=== PATIENT | male | born 1975 | race Caucasian/White ===

== ENCOUNTER 2021-08-21 07:59 | Outpatient (REF) | payer OTHER, SELFPAY ==
[2021-08-21 08:45] LABS: Hematocrit 41.8 % (42.0-52.0); Hemoglobin 14.6 g/dl (14.0-18.0); Mean Corpuscular HGB Conc 34.9 g/dl (31.0-36.0); Mean Corpuscular Hemoglobin 30.8 pg (27.0-33.0); Mean Corpuscular Volume 88.2 fL (80.0-98.0); Mean Platelet Volume 9.3 fL (9.4-12.4); Platelet Count 255 X10*3/uL (160-400); Red Blood Count 4.74 X10*6/uL (4.60-5.80); Red Cell Distribution Width 12.5 % (11.0-16.0); White Blood Count 6.3 X10*3/uL (4.8-10.8)
[2021-08-21 08:50] LABS: Estimated Average Glucose 91 mg/dL; Hemoglobin A1c % 4.8 %
[2021-08-21 09:15] LABS: Alanine Aminotransferase 75 U/L (0-40); Albumin Level 4.2 g/dL (3.5-5.0); Alkaline Phosphatase 60 U/L (39-117); Anion Gap 10 (12-20); Aspartate Amino Transferase 35 U/L (5-37); Bilirubin Total 0.6 mg/dL (0.0-1.0); Blood Urea Nitrogen 15 mg/dL (9-16); Calcium 9.6 mg/dL (8.4-10.2); Carbon Dioxide 29 mmol/L (22-29); Chloride 104 mmol/L (96-108); Cholesterol 213 mg/dL; Estimated Glomerular Filt Rate 57; Glucose Fasting 106 mg/dL (60-99); HDL Cholesterol 47 mg/dL; LDL Cholesterol Calculated 136 mg/dl; Sodium 138 mmol/L (135-145); Total Protein 7.5 g/dL (6.5-8.0); Triglycerides 152 mg/dL
[2021-08-21 09:37] LABS: TSH reflex Free T4 3.18 uIU/mL (0.32-4.0)
== END 2021-08-21 08:00 | disposition home or self-care (01) ==
LOC: HO.LAB 07:59
PROVIDERS: PCP Physician Assistant; Visit Provider Physician Assistant
DX: Z13.220 Encounter for screening for lipoid disorders (principal); Z13.29 Encounter for screening for other suspected endocrine disorder
CPT/HCPCS: 36415; 80053; 80061; 83036; 84443; 85027

== ENCOUNTER → 2021-11-07 14:06 | Outpatient (REF) | payer OTHER, SELFPAY | LOC: HO.SL 14:06 | PROVIDERS: PCP Physician Assistant; Visit Provider Physician Assistant | DX: G47.33 Obstructive sleep apnea (adult) (pediatric) (principal); R06.83 Snoring; R40.0 Somnolence; Z13.29 Encounter for screening for other suspected endocrine disorder | CPT/HCPCS: 95806 ==

== ENCOUNTER 2023-12-16 15:07 | Outpatient (AMB) | payer BC, SELFPAY ==
--- NOTE | 2023-12-16 15:11 | A.OFFPC_ITS ---
Vital Signs 12/16/23 15:12 Height 5 ft 11 in Weight 223 lb 6 oz BMI 31.2 BP 140/84 H Blood Pressure Location Lt brachial Position Sitting Pulse 87 Pulse Source Pulse Oximeter Pulse Oximetry (%) 98 Oxygen Delivery Method Room Air Intake Visit Reasons: PE Intake Note: Patient is here today for a physical. Lead Sustainability Specialist Required: No Accompanied by: Self / Same As Patient Allergies No Known Drug Allergies Allergy (Verified 12/16/23 15:31) Unknown Medication List - Last Reconciled 12/16/23 by Kevin Rogers PA-C ibuprofen 600 mg PO Q8H PRN pantoprazole 20 mg PO DAILY Tobacco use date assessed: 12/16/23 Dental Screening Dental Screen Date: 12/16/23 Did you have a dental visit in the last 12 months?: No Did you have a dental problem in the last 6 months where you did not have access to dental care?: No Was dental information given to patient?: Patient has dentist HPI PE HPI Details Patient is a 48-year-old male here today for routine annual physical. Patient has a past medical history significant for obesity, elevated blood pressure readings, GERD. concerns--> has been dealing with more anxiety and stress at lately. He believes his anxiety stems from personal issues at home. He is not interested in starting any medication for anxiety though is interested in mental health therapy. .. Elevated blood pressure readings: Patient's blood pressure elevated today in office. He attributes his elevated blood pressure to poor eating habits.. He report at home he has been monitoring his BP 120-128 systolic. He feels he has white coat hypertension . .. Obstructive sleep apnea: Follows [facility]. Uses CPAP on a nightly basis with .. Obesity: He does understand his BMI is over 30 and will work on being more physically active and adapting to better eating habits to reduce his weight. Vaccines: Up-to-date with COVID vaccine, need Tdap. need Pcv Laboratory Tests 08/21/21 08/21/21 08/21/21 08:19 08:19 08:19 RBC 4.74 Hgb 14.6 Creatinine 1.35 Hemoglobin A1c % 4.8 AST 35 ALT 75 H Cholesterol 213 LDL Cholesterol, C alc 136 TSH 3.18 PFSH Medical History Obesity (BMI 30-39.9) Retrognathia HTN, goal to be determined Family History Mother Heart failure, Onset Age: 70 COVID-19 Smoker Father Diabetes Paternal Grandmother Colon cancer Social History (Updated 12/16/23 @ 15:35 by Kevin Rogers PA-C) Housing: House Alcohol intake: never Patient Tobacco Use Status: Former Tobacco user Years Smoked: 7 e-Cigarette/Vaping Use: Never Used service: No Current occupational status: employed 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 1. Little interest or pleasure in doing things: not at all 2. Feeling down, depressed, or hopeless: not at all 3. Trouble falling or staying asleep, or sleeping too much: not at all 4. Feeling tired or having little energy: not at all 5. Poor appetite or overeating: not at all 6. Feeling bad about yourself - or that you are a failure or have let yourself or your family down: not at all 7. Trouble concentrating on things, such as reading the newspaper or watching television: not at all 8. Moving or speaking so slowly that other people could have noticed. Or the opposite - being so fidgety or restless that you have been moving around a lot more than usual: not at all 9. Thoughts that you would be better off or of hurting yourself in some wa y: not at all Total score: 0 Depression Screening Interpretation: Negative Depression Screening Done: Yes 14257 - PHQ-9 Billing: Yes Source: Developed by Drs. Mehrdad Pena, Mary Keita, Claudio Centeno and colleagues, with an educational camilo from [employer]. Thrive Questionnaire Date Thrive assessed: 12/16/23 I am a: Patient What is your living situation today?: I have a steady place to live Within the past 12 months, did the food you bought not last and you didn't have the money to get more?: Never true Within the past 12 months, did you worry whether your food would run out before you got money to buy more?: Never true Do you have trouble paying for medicines?: No Do you have trouble getting transportation to medical appointments?: No Do you have trouble paying your heating and electricity bill?: No Do you have trouble taking care of your child, family member or friend?: No Do you have trouble with day-to-day activities such as bathing, preparing meals, shopping, managing finances, etc.?: No Are you currently unemployed and looking for a job?: No Are you interested in more education?: No Please select the resources that you would like help with: None Currently or been in a relationship where the following occur: No concerns reported THRIVE Score: 0 AUDIT C Alcohol Use Questionnaire (AUDIT-C) 1. How often do you have a drink containing alcohol?: Never 3. How often do you have six or more drinks on one occasion?: Never Total Score: 0 MARIE-7 AMB Questionnaire MARIE-7 Date MARIE - 7 assessed: 12/16/23 Feeling nervous, anxious, or on edge: 0 = Not at all Not being able to stop or control worryin = Not at all Worrying too much about different things: 0 = Not at all Trouble relaxin = Not at all Being so restless that it is hard to sit still: 0 = Not at all Becoming easily annoyed or irritable: 0 = Not at all Feeling afraid as if something awful might happen: 0 = Not at all Total MARIE-7 score (0-4 normal; 5-9 mild; 10-14 moderate; 15-21 severe): 0 Source: Developed by Drs. Mehrdad Pena, Mary Keita, Claudio Centeno and colleagues, with an educational camilo from [employer]. MARIE-7 Assessment Billing MARIE-7 Assessment Tool: MARIE-7 Assessment 23384 Review of Systems Const Denies body aches, Denies chills, Denies excessive sweating, Denies fatigue, Denies fever(s) and Denies headache(s) Eyes Denies blurry vision ENT Denies dysphagia, Denies vertigo, Denies dizziness, Denies headache(s), Denies hearing loss and Denies tinnitus Card Denies chest pain, Denies chest pain with activity, Denies syncope, Denies irregular heart rhythm and Denies dyspnea Resp Denies chest congestion, Denies cough, Denies hemoptysis, Denies dyspnea and Denies wheezing GI Denies abdominal pain, Denies melena, Denies hematochezia, Denies coffee ground emesis, Denies dysphagia, Denies diarrhea, Denies nausea and Denies vomiting Denies difficulty urinating, Denies dysuria, Denies urinary frequency, Denies urinary hesitancy and Denies urinary urgency Musc Denies arthralgias, Denies limited range of motion, Denies muscle cramps and Denies muscle weakness Skin/Breast Denies rash and Denies skin ulcer Neuro Denies Abnormal speech present, Denies confusion, Denies vertigo, Denies dizziness, Denies syncope, Denies headache(s), Denies memory loss and Denies seizure-like activity Psych Denies anxiety, Denies confusion, Denies depression, Denies memory loss, Denies panic attacks and Denies paranoia Endo Denies excessive sweating, Denies fatigue, Denies flushing, Denies polydipsia and Denies polyuria Aller/Immun Denies wheezing Physical exam (Primary Care) Vital Signs: Last Vital Signs Pulse 87 12/16/23 15:12 BP 140/84 H 12/16/23 15:12 Pulse Ox 98 12/16/23 15:12 Oxygen Delivery Method Room Air 12/16/23 15:12 BMI result Body Mass Index 31.2 Tobacco/Smoking Status: Tobacco use Status Tobacco use date assessed 12/16/23 12/16/23 15:17 Patient Tobacco Use Status Former Tobacco user 12/16/23 15:35 e-Cigarette/Vaping Use Never Used 12/16/23 15:35 PHQ-9: PHQ-9 Score PHQ-9: Total score 0 12/16/23 16:03 Depression Screening Interpretation: Negative Thrive Assessment: Date of Thrive Assessment Date Thrive assessed 12/16/23 12/16/23 15:17 Currently or been in a relationship where the following occur: No concerns reported Const General: cooperative, comfortable, no acute distress, alert and awake; No confusion Orientation/consciousness: oriented to person, oriented to place, patient oriented x3 and No confusion HENMT Head: Yes normocephalic Ears: external ears normal and TM's normal bilaterally Face and sinus: No sinus tenderness Mouth: Normal oral and palatal mucosa present and tongue normal Teeth and gingiva: dentition normal and gingiva normal Throat: Yes posterior oropharynx normal, Yes tonsils normal and Yes uvula midline Eyes Conjunctivae: conjunctivae normal Sclerae: sclerae normal Pupils: Equal, round and reactive pupils present EOM: EOMs intact bilaterally Direct Ophthalmoscopy: No no photophobia Neck Neck: Yes no lymphadenopathy, No tender and Yes no JVD Thyroid: Thyroid normal Carotids: no bruits Chest Chest palpation & inspection: no tenderness Resp Effort & Inspection: normal respiratory effort, no audible wheezes, not labored and no stridor Auscultation: no crackles, no rales, no rhonchi and no wheezes Cardio Jugular venous distension: no JVD Rate: regular rate, not bradycardic and not tachycardic Rhythm: regular rhythm Bruits: no carotid bruits Peripheral pulses: Peripheral pulses 2+ throughout GI Inspection: Yes normal to inspection, No abdominal wall ecchymosis and No visible herniation Palpation (GI): Soft to palpation, nontender, no guarding, not rigid and No hepatosplenomegaly present Auscultation: normoactive bowel sounds General: Yes no CVA tenderness Back/Spine/Pelvis Back: no CVA tenderness and No back tenderness Cervical Spine: cervical ROM normal Thoracic/Lumbar Spine: thoracic and lumbar spine normal to inspection, straight leg raise negative bilaterally, No thoraco-lumbar ROM limited and No lumbar spinal tenderness Skin Lesions: no lesions Rashes: no rashes Wounds: no wounds Neuro General: oriented to person, oriented to place, patient oriented x3, CN's II-XI intact bilaterally and No confusion Cranial nerves: Yes Equal, round and reactive pupils present and Yes Normal accommodation reflex present Cognition (Neuro): normal cognition Speech: No Abnormal speech present Gait exam (Neuro): Normal gait present Motor exam (neuro): 5/5 motor strength present throughout Extrem Right upper extremity: full ROM; no cyanosis Left upper extremity: full ROM; no cyanosis Right lower extremity: no edema Left lower extremity: no edema Psych Appearance: grossly normal Mental Status: mental status grossly normal Affect: normal affect Attitude: cooperative Thought process: Normal thought process present Immunizations Boostrix Tdap 2.5 Lf unit-8 mcg-5 Lf/0.5 mL intramuscular syringe Performing Provider: Kevin Rogers PA-C Performing Location: [facility] Administered by: MONICO Roach on 12/16/23 16:02 Dose Route Admin Location Dispensed Lot Number Expiration Date NDC Chemistry Lecturer 0.5 mL IM Right Deltoid 0.5 mL [id number] 02/03/26 [id number] [employer] VIS Given Date VIS Provided VIS Publication Date 12/16/23 Single Vaccine 20 Eligibility Eligibility Date Funding Source Not [facility] Eligible 12/16/23 Private Assessment and Plan Assessment & Plan (1) Annual physical exam: Code(s): Z00.00 - Encounter for general adult medical examination without abnormal findings (2) Borderline high cholesterol: Code(s): E78.9 - Disorder of lipoprotein metabolism, unspecified Plan: Noted borderline high cholesterol on most recent fasting lipids. Patient will work on low-cholesterol diet and will were check fasting lipids in 6 months. Goal LDL to be below 130 (3) GERD (gastroesophageal reflux disease): Code(s): K21.9 - Gastro-esophageal reflux disease without esophagitis Qualifiers: Esophagitis presence: without esophagitis Qualified Code(s): K21.9 - Gastro-esophageal reflux disease without esophagitis Plan: Continues with p.r.n. use of pantoprazole on a p.r.n. basis with good effect. He has been working dietary modifications to reduce his GERD symptoms as well. (4) Elevated blood pressure reading: Code(s): R03.0 - Elevated blood-pressure reading, without diagnosis of hypertension Plan: Patient has been noted to have elevated blood pressure readings here in medical offices. He does admit his diet has been poor and will work on dietary modifications to reduce his blood pressure.. Otherwise denies any symptoms of headaches, chest discomfort or dizziness. (5) MARIE (generalized anxiety disorder): Code(s): F41.1 - Generalized anxiety disorder Plan: He reports he has been dealing with more stress and anxiety as of late. He is not interested in medication though is willing to speak with a mental health therapist about his anxiety. Orders: Orders Comprehensive Dolph. Panel Fast 12/16/23 E78.9 - Disorder of lipoprotein metabolism, unspecified Lipid Panel 12/16/23 E78.9 - Disorder of lipoprotein metabolism, unspecified TDaP Immunization 12/16/23 E78.9 - Disorder of lipoprotein metabolism, unsp ecified, Z23 - Encounter for immunization Complete Blood Count no Diff 12/16/23 G47.33 - Obstructive sleep apnea (adult) (pediatric) Referrals Counseling Referral F41.1 - Generalized anxiety disorder Coding Level of Care Code Est Pt Prev Care 40-64y(91455) Diagnoses Annual physical exam Z00.00 Borderline high cholesterol E78.9 Gastroesophageal reflux disease without esophagitis K21.9 Esophagitis presence: without esophagitis Elevated blood pressure reading R03.0 MARIE (generalized anxiety disorder) F41.1 Additional Codes MARIE-7 Assessment Billing - MARIE-7 Assessment Tool: MARIE-7 Assessment [id number] ([id number])
[2023-12-16 15:12] VITALS: BP 140/84; PULSE 87; O2SAT 98; BMI 31.2
== END 2023-12-16 16:02 | disposition home or self-care (01) ==
PROVIDERS: PCP Physician Assistant; Visit Provider Physician Assistant
DX: Z23 Encounter for immunization (principal)
CPT/HCPCS: 90471; 90715; 99396